=== PATIENT | male | born 1950 | race Caucasian/White ===

== ENCOUNTER 2024-01-03 15:18 | Outpatient (OUT) | payer MEDICARE, SELFPAY ==
--- NOTE | 2024-01-03 15:38 | XR_ITS ---
The [address] [address] Patient Name: NANDO DO MRN: [id number] date: 1950 Sex: M Assigned Patient Location: [facility] Current Patient Location: Accession/Order Number: [id number] Exam Date: 01/03/2024 15:32 Report Date: 01/04/2024 06:29 At the request of: LOLA HILL Procedure: XR cervical spine 2-3V EXAMINATION: XR cervical spine 2-3V HISTORY: Neck Pain M54.2 ; right arm and hand pain COMPARISON: No relevant comparison available. FINDINGS: BONES: Multilevel mild degenerative facet arthropathy. DISC SPACES: C5-C6 moderate narrowing. C6-C7-C7, C7 and T1 mild narrowing. PARASPINOUS: Negative. No paraspinous abnormality is seen. OTHER: Negative. XR/XR cervical spine 2-3V IMPRESSION: 1. Multilevel degenerative disc disease; moderate at C5-C6. Consider MRI for further evaluation if symptoms persist. Electronically authenticated by: AUTUMN PUGA Date: 01/04/2024 06:29
== END 2024-01-03 15:19 | disposition home or self-care (01) ==
LOC: RAD 15:21
PROVIDERS: Family Provider Family Medicine; PCP Family Medicine; Visit Provider Family Medicine
DX: M54.2 Cervicalgia (principal)
CPT/HCPCS: 72040

== ENCOUNTER 2024-02-07 13:20 | Outpatient (OUT) | payer MEDICARE, SELFPAY ==
--- OUTSIDE RECORDS SUMMARY | 2024-02-07 13:48 | XMS_ITS | CCD ---
Author Organization [facility] Inform ion Partnership [facility] Care Team Providers Care Biology Department Chair Name Role Phone Joe Linda Primary Care Provid er JOE INIGUEZ Referring Unavailable JOE INIGUEZ Primary Care Unavailable JOE INIGUEZ Attending Unavailable JOE INIGUEZ Primary Care Unavailable JOE INIGUEZ Attending Unavailable JOE INIGUEZ Referring Unavailable JOE INIGUEZ Primary Care Unavailable JOE INIGUEZ Attending Unavailable JOE INIGUEZ Referring Unavailable JOE INIGUEZ Primary Care Unavailable Lola Hill MD Primary Care Provider [phone] LOLA HILL Attending Unavailable Medications Current Medications Medication Drug Class(es) Dates Sig (Normalized) Sig (Original) [id number] 200 actuat albuterol 0.09 mg/actuat metered dose inhaler (1 source) beta2-Adrenergic Agonist Start: 06-18-2023 End: 07-02-2023 take 2 puff(s) by inhalation every six hours as needed for wheezing albuterol (PROVENTIL HFA;VENTOLIN HFA) 90 mcg/actuation inhaler Indications: Acute cough Inhale 2 puffs every 6 (six) hours as needed for wheezing for up to 14 days. 6.7 g 11 06/18/2023 07/02/2023 Active aspirin 81 mg delayed release oral tablet (2 sources) Platelet Aggregation Inhibitor, Nonsteroidal Anti-inflammatory Drug take 1 tablet by mouth once daily aspirin 81 MG EC tablet Take 81 mg by mouth Daily Active atorvastatin 40 mg oral tablet (2 sources) HMG-CoA Reductase Inhibitor Start: 01-01-2024 take 1 tablet by mouth once daily atorvastatin (Lipitor) 40 MG tablet Indications: Type 2 diabetes mellitus with hyperglycemia, without long-term current use of insulin ([facility]) Take 1 tablet (40 mg) by mouth Daily 30 tablet 3 01/01/2024 Active Start: 01-01-2024 take 1 tablet by suzy th once daily atorvastatin (Lipitor) 40 MG tablet Indications: Type 2 diabetes mellitus with hyperglycemia, without long-term current use of insulin (CMS/HCC) Take 1 tablet (40 mg) by mouth Daily 30 tablet 3 01/01/2024 Active azithromycin 250 mg oral tablet (1 source) Macrolide Antimicrobial Start: 06-18-2023 End: 06-22-2023 azithromycin (ZITHROMAX) 250 mg tablet Indications: Upper respiratory tract infection, unspecified type Take 2 tablets the first day, then 1 tablet daily for 4 days. 6 tablet 0 06/18/2023 06/22/2023 Active cyclobenzaprine hydrochloride 10 mg oral tablet (2 sources) Muscle Relaxant Start: 01-01-2024 take 1 tablet by mouth in the morning, then take 1 tablet by mouth in the evening, then take 1 tablet by mouth at bedtime cyclobenzaprine (Flexeril) 10 MG tablet Indications: Cervical radiculopathy Take 1 tablet (10 mg) by mouth in the morning and 1 tablet (10 mg) in the evening and 1 tablet (10 mg) before bedtime. 60 tablet 1 01/01/2024 Active Start: 01-01-2024 take 1 tablet by suzy th in the morning, then take 1 tablet by mouth in the evening, then take 1 tablet by mouth at bedtime cyclobenzaprine (Flexeril) 10 MG tablet Indications: Cervical radiculopathy Take 1 tablet (10 mg) by mouth in the morning and 1 tablet (10 mg) in the evening and 1 tablet (10 mg) before bedtime. 60 tablet 1 01/01/2024 Active dextromethorphan hydrobromide 1.5 mg/ml / pyrilamine maleate 1.5 mg/ml oral solution (1 source) Uncompetitive X-bjiqff-U-aspartate Receptor Antagonist, Sigma-1 Agonist Start: 06-18-2023 take 10 mL by mouth every eight hours for cough and cough pyrilamine-dextromethorphan 7.5-7.5 mg/5 mL liquid Indications: Acute cough Take 10 mL by mouth every 8 (eight) hours. 120 mL 0 06/18/2023 Active 24 hr metFORMIN hydrochloride 500 mg extended release oral tablet (2 sources) Biguanide Start: 08-20-2023 End: 01-01-2024 take 1 tablet by mouth every twenty-f our hours at mealtime metFORMIN XR (Glucophage-XR) 500 MG 24 hr tablet Take 500 mg by mouth in the morning. Take with meals. 08/20/2023 01/01/2024 Discontinued predniSONE 50 mg oral tablet (3 sources) Start: 01-01-2024 End: 01-07-2024 take 1 tablet by mouth once daily predniSONE (Deltasone) 50 MG tablet Indications: Cervical radiculopathy Take 1 tablet (50 mg) by mouth Daily for 6 days 6 tablet 01/01/2024 01/07/2024 Active Start: 06-18-2023 End: 06-23-2023 take 1 tablet by mouth in the morning, then take 1 tablet by mouth at bedtime predniSONE (DELTASONE) 10 mg tablet Indications: Upper respiratory tract infection, unspecified type Take 1 tablet (10 mg total) by mouth in the morning and 1 tablet (10 mg total) before bedtime. Do all this for 5 days. 10 tablet 0 06/18/2023 06/23/2023 Active traMADol hydrochloride 50 mg oral tablet (2 sources) Opioid Agonist Start: 01-01-2024 End: 01-08-2024 take 1 tablet by mouth four times daily as needed for pain traMADol (Ultram) 50 MG tablet Indications: Cervical radiculopathy Take 1 tablet (50 mg) by mouth 4 (four) times a day as needed for severe pain for up to 7 days 28 tablet 01/01/2024 01/08/2024 Active Problems Active Problems Problem Classification Problem Date Documented Da te Episodic/Chronic Congestive heart failure; nonhypertensive (4 sources) Chronic systolic heart failure; Translations: [Chronic systolic (congestive) heart failure] Onset: 01-01-2024 01-01-2024 Chronic Coronary atherosclerosis and other heart disease (4 sources) Coronary arteriosclerosis; Translations: [Atherosclerotic heart disease of inupiat coronary artery without angina pectoris] Onset: 01-01-2024 01-01-2024 Chronic Diabetes mellitus with complications (5 sources) Type 2 diabetes mellitus with hyperglycemia; Translations: [Hyperglycemia due to type 2 diabetes mellitus] Onset: 08-20-2023 01-01-2024 Chronic Diabetes mellitus without complication (1 source) Diabetes mellitus Onset: 08-20-2023 Chronic Disorders of lipid metabolism (4 sources) Mixed hyperlipidemia; Translations: [Dyslipidemia] Onset: 07-23-2023 01-01-2024 Chronic Immunizations and screening for infectious disease (2 sources) Encounter for screening for other viral diseases; Translations: [Encounter for screening for other viral diseases] Onset: 07-23-2023 Episodic Mood disorders (4 sources) Depression; Translations: [Major depressive disorder, single episode, mild] Onset: 07-23-2023 01-01-2024 Chronic Other aftercare (2 sources) Long-term current use of drug therapy; Translations: [Other fpc (current) drug therapy] Onset: 01-01-2024 01-01-2024 Episodic Other circulatory disease (4 sources) Elevated blood-pressure reading without diagnosis of hypertension; Translations: [Elevated blood-pressure reading, without diagnosis of hypertension] Onset: 01-01-2024 01-01-2024 Episodic Other lower respiratory disease (1 source) Cough; Translations: [Acute cough] 06-18-2023 Episodic Other nutritional; endocrine; and metabolic disorders (2 sources) Morbid obesity; Translations: [Morbid (severe) obesity due to excess calories] Onset: 06-18-2023 06-18-2023 Chronic Other nutritional; endocrine; and metabolic disorders (1 source) Morbid (severe) obesity due to excess calories; Translations: [Morbid (severe) obesity due to excess calories] Onset: 06-18-2023 Chronic Other nutritional; endocrine; and metabolic disorders (2 sources) Body mass index 30+ - obesity; Translations: [Obesity, unspecified] Onset: 01-01-2024 01-01-2024 Chronic Other upper respiratory disease (1 source) Allergic rhinitis due to pollen; Translations: [Allergic rhinitis due to pollen] Onset: 07-23-2023 Chronic Other upper respiratory infections (2 sources) Upper respiratory infection; Translations: [Acute upper respiratory infection, unspecified] Onset: 06-18-2023 06-18-2023 Episodic Screening and history of mental health and substance abuse codes (1 source) Encounter for screening for depression; Translations: [Encounter for screening for depression] Onset: 07-23-2023 Episodic Spondylosis; intervertebral disc disorders; other back problems (8 sources) Cervical radiculopathy; Translations: [Radiculopathy, cervical region] Onset: 01-01-2024 01-01-2024 Episodic Unclassified (1 source) Annual Exam Onset: 07-23-2023 Unclassified (1 source) Acute cough; Translations: [Acute cough] Onset: 06-18-2023 Unclassified (1 source) new patient Onset: 06-18-2023 Past or Other Problems Problem Classification Problem Date Documented Da te Episodic/Chronic Mood disorders (1 source) Mood disorders Onset: 06-18-2023 06-18-2023 Unclassified (1 source) Onset: 06-18-2023 06-18-2023 Results Test Name Value Interpretation Reference Range Facil ity CBC AND AUTO DIFFon 07-23-19 24 ABSOLUTE BASOPHIL 0.1 X10E9/L Normal 0.0-0.2 [facility] Comment on above: Performed By: #### C BCA CMP, 36576-0, 06999-0 #### [facility] ([id number]) [address], [address] [place] [address] Basophils/100 WBC (Bld) 1.0 % Normal [facility] Comment on above: Performed By: #### C BCA, CMP, 81954-4, 73204-6 #### [facility] ([id number]) [address], [address] [place] [address] Eosinophils (Bld) [#/Vol] 0.1 10*3/uL Normal 0.0-0.4 [facility] Comment on above: Performed By: #### C BCA, CMP, 73422-0, 78629-3 #### [facility] ([id number]) [address], [address] [place] [address] Eosinophils/100 WBC (Bld) 2.0 % Normal [facility] Comment on above: Performed By: #### C BCA, CMP, 76516-1, 19992-3 #### [facility] ([id number]) [address], [address] [place] [address] Erythrocyte distribution width (RBC) [Ratio] 13.5 % Normal 11.5-15.0 [facility] Comment on above: Performed By: #### C BCA, CMP, 14985-9, 36300-3 #### [facility] ([id number]) [address], [address] [place] [address] Hematocrit (Bld) [Volume fraction] 42.2 % Normal 39-49 [facility] Comment on above: Performed By: #### C BCA, CMP, 22829-9, 29193-5 #### [facility] ([id number]) [address], [address] [place] [address] Hemoglobin (Bld) [Mass/Vol] 14.1 g/dL Normal 13.0-17.0 [facility] Comment on above: Performed By: #### C BCA, CMP, 71549-0, 79570-1 #### [facility] ([id number]) [address], [address] [place] [address] Lymphocytes (Bld) [#/Vol] 2.3 10*3/uL Normal 1.0-3.5 [facility] Comment on above: Performed By: #### C BCA, CMP, 40840-7, 47722-2 #### [facility] ([id number]) [address], [address] [place] [address] Lymphocytes/100 WBC (Bld) 39.0 % Normal [facility] Comment on above: Performed By: #### C BCA, CMP, 70712-3, 27683-2 #### [facility] ([id number]) [address], [address] [place] [address] MCH (RBC) [Entitic mass] 31.2 pg Normal 27-34 [facility] Comment on above: Performed By: #### C BCA, CMP, 54500-7, 20022-5 #### [facility] ([id number]) [address], [address] [place] [address] MCHC (RBC) [Mass/Vol] 33.5 g/dL Normal 32-36 [facility] Comment on above: Performed By: #### C BCA, CMP, 89351-1, 43713-7 #### [facility] ([id number]) [address], [address] [place] [address] MCV (RBC) [Entitic vol] 93 fL Normal 80-100 [facility] Comment on above: Performed By: #### C BCA, CMP, 25901-5, 43688-9 #### [facility] ([id number]) [address], [facility] [address] [place] [address] Monocytes (Bld) [#/Vol] 0.3 10*3/uL Normal 0-0.9 [facility] Comment on above: Performed By: #### Tae BCA, CMP, 67953-5, 91809-6 #### [facility] ([id number]) [address], [address] [address] [place] [address] Monocytes/100 WBC (Bld) 5.0 % Normal [facility] Comment on above: Performed By: #### C BCA, CMP, 60530-0, 24494-4 #### [facility] ([id number]) [address] [address] [place] [address] Neutrophils (Bld) [#/Vol] 3.1 10*3/uL Normal 1.5-6.6 [facility] Comment on above: Performed By: #### C BCA, CMP, 25894-4, 42434-6 #### [facility] ([id number]) [address], [address] [place] [address] Platelet mean volume (Bld) [Entitic vol] 10.3 fL Normal 7-12 [facility] Comment on above: Performed By: #### C BCA, CMP, 45205-3, 63759-1 #### [facility] ([id number]) [address], [address] [place] [address] Platelets (Bld) [#/Vol] 184 10*3/uL Normal 150-450 [facility] Comment on above: Performed By: #### C BCA, CMP, 58523-4, 51136-0 #### [facility] ([id number]) [address], [address] [place] [address] RBC COUNT 4.53 X10E12/L Normal 4.10-5.70 [facility] Comment on above: Performed By: #### C BCA, CMP, 20876-6, 51168-2 #### [facility] ([id number]) [address], [address] [place] [address] SEG NEUTROPHIL 53.0 % Normal [facility] Comment on above: Performed By: #### C BCA, CMP, 74828-8, 03997-5 #### [facility] ([id number]) [address], [address] [place] [address] WBC (Bld) [#/Vol] 5.9 10*3/uL Normal 4.0-11.0 [facility] Comment on above: Performed By: #### C BCA, CMP, 57230-1, 50240-6 #### [facility] ([id number]) [address], [address] [place] [address] COMPREHENSIVE METABOLIC PANE Raman 07-23-2023 Albumin [Mass/Vol] 4.1 g/dL Normal 3.2-5.3 [facility] Comment on above: Performed By: #### C BCA, CMP, 63946-7, 26728-0 #### [facility] ([id number]) [address], [address] [place] [address] ALP [Catalytic activity/Vol] 64 U/L Normal 39-130 [facility] Comment on above: Performed By: #### C BCA, CMP, 60850-7, 73475-1 #### [facility] ([id number]) [address], [address] [place] [address] ALT [Catalytic activity/Vol] 15 U/L Normal 0-40 [facility] Comment on above: Performed By: #### C BCA, CMP, 66491-1, 86568-1 #### [facility] ([id number]) [address], [address] [place] [address] Anion gap [Moles/Vol] 9 mmol/L Normal 5-15 [facility] Comment on above: Performed By: #### C BCA, CMP, 67984-2, 38949-9 #### [facility] ([id number]) [address], [address] [place] [address] AST [Catalytic activity/Vol] 12 U/L Normal 0-41 [facility] Comment on above: Performed By: #### C BCA, CMP, 36219-1, 18721-4 #### [facility] ([id number]) [address], [address] [place] [address] Bilirubin [Mass/Vol] 0.6 mg/dL Normal 0.3-1.2 [facility] Comment on above: Performed By: #### C BCA, CMP, 72023-0, 94255-9 #### [facility] ([id number]) [address], [address] [place] [address] Calcium [Mass/Vol] 9.1 mg/dL Normal 8.5-10.5 [facility] Comment on above: Performed By: #### C BCA, CMP, 46768-2, 25720-0 #### [facility] ([id number]) [address], [address] [place] [address] Chloride [Moles/Vol] 107 mmol/L Normal 98-109 [facility] Comment on above: Performed By: #### C BCA, CMP, 80258-9, 70519-9 #### [facility] ([id number]) [address], [address] [place] [address] CO2 [Moles/Vol] 25 mmol/L Normal 22-32 [facility] Comment on above: Performed By: #### C BCA, CMP, 41144-4, 96519-9 #### [facility] ([id number]) [address], [address] [place] [address] Creatinine [Mass/Vol] 0.89 mg/dL Normal 0.60-1.30 [facility] Comment on above: Result Comment: METH OD TRACEABLE TO IDMS STANDARD Performed By: #### C BCA, CMP, 51580-8, 68840-7 #### [facility] ([id number]) [address], [address] [address] GFR/1.73 sq M.predicted among non-blacks MDRD (S/P/Bld) [Vol rate/Area] 90 mL/min/{1.73_m2} Normal >59 [facility] Comment on above: Result Comment: Reported eGFR is based on the CKD-EPI 2020 equation that does not use a race coefficient. Performed By: #### C BCA, CMP, 30355-0, 89039-1 #### [facility] ([id number]) [address], [address] [place] [address] Glucose [Mass/Vol] 127 mg/dL High 65-99 [facility] Comment on above: Performed By: #### C BCA, CMP, 18994-1, 97799-5 #### [facility] ([id number]) [address], [address] [place] [address] Potassium [Moles/Vol] 4.0 mmol/L Normal 3.5-5.0 [facility] Comment on above: Performed By: #### C BCA, CMP, 84041-6, 79307-8 #### [facility] ([id number]) [address], [address] [place] [address] Protein [Mass/Vol] 6.7 g/dL Normal 6.0-8.0 [facility] Comment on above: Performed By: #### C BCA, CMP, 84152-7, 97802-3 #### [facility] ([id number]) [address], [address] [place] [address] Sodium [Moles/Vol] 141 mmol/L Normal 134-146 [facility] Comment on above: Performed By: #### C BCA, CMP, 68566-0, 74747-5 #### [facility] ([id number]) [address], [address] [place] [address] Urea nitrogen [Mass/Vol] 12 mg/dL Normal 5-27 [facility] Comment on above: Performed By: #### C BCA, CMP, 48766-8, 61481-9 #### [facility] ([id number]) [address] [address] [place] [address] HCV Ab IA Qlon 07-23-2023 ANTI HCV W/PCR REFLX Non-Reactive Normal NRCT [facility] Comment on above: Result Comment: If recent infection suspected, recommend repeat testing (>2 months). Qtfffg-et-zqbpef ratio is <0.80. Performed By: #### C BCA, CMP, 73054-3, 45658-5 #### [facility] ([id number]) [address], [address] [place] [address] HGB A1C (GLYCO-HGB)on 2023 Glucose [Mass/Vol] 146 mg/dL Normal [facility] Comment on above: Performed By: #### C BCA, CMP, 26917-7, 37296-7 #### [facility] ([id number]) [address], [address] [place] [address] HbA1c (Bld) [Mass fraction] 6.7 % High 4.4-5.6 [facility] Comment on above: Result Comment: NOTE ADA Guidelines Result HgbA1c Normal : less than 5.7 % Prediabetes : 5.7 % to 6.4 % Diabetes : > 6.4 % Use with caution in patients with abnormal hemoglobin variants as the half-life of red blood cells and in vivo glycation rates are affected. Performed By: #### C BCA, CMP, 71296-2, 20661-2 #### [facility] ([id number]) [address] [place] [address] Lipid 1996 panelon 4 Cholesterol [Mass/Vol] 219 mg/dL High 150-200 [facility] Comment on above: Performed By: #### C BCA, CMP, 10702-1, 25109-2 #### [facility] ([id number]) [address], [address] [place] [address] Cholesterol in HDL [Mass/Vol] 37 mg/dL Low >39 [facility] Comment on above: Result Comment: HDL <40 mg/dL - High Risk HDL > or = 40mg/dL- Desirable HDL >60 mg/dL - Negative Risk Performed By: #### C BCA, CMP, 59053-4, 38710-3 #### [facility] ([id number]) [address] [place] [address] Cholesterol in LDL [Mass/Vol] 127 mg/dL Normal <130 [facility] Comment on above: Result Comment: LDL <100 mg/dL - Desirable LDL >160 mg/dL - High Risk Performed By: #### C BCA, CMP, 96385-1, 17422-4 #### [facility] ([id number]) [address], [address] [place] [address] Cholesterol in VLDL [Mass/Vol] 55 mg/dL High 0-30 [facility] Comment on above: Performed By: #### C BCA, CMP, 16419-2, 95334-3 #### [facility] ([id number]) [address], [address] [place] [address] CHOLESTEROL:HDL 5.9 High 1.0-5.0 [facility] Comment on above: Performed By: #### C BCA, CMP, 71400-5, 15305-1 #### [facility] ([id number]) [address], [address] [place] [address] Triglyceride [Mass/Vol] 275 mg/dL High 27-150 [facility] Comment on above: Performed By: #### C BCA, CMP, 38025-9, 44817-8 #### [facility] ([id number]) [address], [address] [place] [address] Vital Signs Date Time Vital Sign Value Performing Clinician Facility 01-01-2024 10:55-0400 Body height 172.7 cm Lola Hill MD Work Phone: [facility] 01-01-2024 10:55-0400 Body mass index (BMI) [Ratio] 39.68 kg/m2 Lola Hill MD Work Phone: [facility] 01-01-2024 10:55-0400 Body temperature 95.11 [degF] Lola Hill MD Work Phone: [facility] 01-01-2024 10:55-0400 Body weight 118.39 kg Lola Hill MD Work Phone: [facility] 01-01-2024 10:55-0400 Diastolic blood pressure 100 mm[Hg] Lola Hill MD Work Phone: [facility] 01-01-2024 10:55-0400 Heart rate 81 /min Lola Hill MD Work Phone: [facility] 01-01-2024 10:55-0400 Respiratory rate 18 /min Lola Hill MD Work Phone: [facility] 01-01-2024 10:55-0400 SaO2% (BldA) [Mass fraction] 96 % Lola Hill MD Work Phone: [facility] 01-01-2024 10:55-0400 Systolic blood pressure 176 mm[Hg] Lola Hill MD Work Phone: [facility] 06-18-2023 13:54-0400 Body height 172.7 cm Joe Iniguez [employer] Work Phone: [facility] 06-18-2023 13:54-0400 Body mass index (BMI) [Ratio] 40.35 kg/m2 Joe Iniguez [employer] Work Phone: [facility] 06-18-2023 13:54-0400 Body temperature 97.39 [degF] Joe Iniguez [employer] Work Phone: [facility] 06-18-2023 13:54-0400 Body weight 120.39 kg Joe Iniguez [employer] Work Phone: [facility] 06-18-2023 13:54-0400 Diastolic blood pressure 88 mm[Hg] Joe Iniguez [employer]ICER Work Phone: [facility] 06-18-2023 13:54-0400 Heart rate 96 /min Joe Iniguez [employer] OFFICER Work Phone: [facility] 06-18-2023 13:54-0400 Respiratory rate 20 /min Joe Iniguez [employer] OFFICER Work Phone: [facility] 06-18-2023 13:54-0400 SaO2% (BldA) [Mass fraction] 92 % Joe Iniguez [employer] OFFICER Work Phone: [facility] 06-18-2023 13:54-0400 Systolic blood pressure 138 mm[Hg] Joe Iniguez [employer] Work Phone: [facility] Encounters Encounter Date Encounter Type Care Provider Facility Start: 01-01-2024 End: 01-01-2024 Bambo flowsjackie Hill MD Work Phone: [facility] Start: 01-01-2024 End: 01-01-2024 Bamanitra flowsjackie Hill MD Work Phone: [facility] Start: 01-01-2024 End: 01-01-2024 Office outpatient new 45 minutes Lola Hill MD Work Phone: [facility] Comment on above: Cervical radiculopat hy (Primary Dx); Neck pain; Type 2 diabetes mellitus with hyperglycemia, without long-term current use of insulin ([facility]); Chronic HFrEF (heart failure with reduced ejection fraction) ([facility]); Coronary artery disease involving inupiat coronary artery of inupiat heart without angina pectoris ([facility]); Elevated blood pressure reading without diagnosis of hypertension Start: 01-01-2024 End: 01-01-2024 ambulatory LOLA HILL Not Available Start: 08-20-2023 End: 08-20-2023 ambulatory [facility] Start: 07-23-2023 End: 07-24-2023 ambulatory [facility] Start: 07-23-2023 End: 07-23-2023 ambulatory [facility] Start: 07-23-2023 Encounter for genera l adult medical examination without abnormal findings [facility] Start: 06-18-2023 End: 06-18-2023 ambulatory [facility] Start: 06-18-2023 End: 06-18-2023 Office outpatient new 30 minutes Joe J Vincent [employer] Work Phone: [facility] Comment on above: Upper respiratory tr act infection, unspecified type (Primary Dx); Obesity, morbid ([facility]); Acute cough Procedures Date Procedure Procedure Detail Performing Clinician Start: 06-18-2023 Adult depression screening assessment Joe PEREZTRAFFIC MAINTENANCE OFFICER Work Phone: Plan of Treatment Date Care Activity Detail Author Start: 12-31-2024 Screening for malign ant neoplasm of colon Colorectal Cancer Screening [facility] Comment on above: Postponed from 03/27 (Patient Refused) Start: 07-22-2024 Medicare Annual Well ness (AWV) Medicare Annual Wellness (AWV) [facility] Start: 06-17-2024 Adult BMI Screening Adult BMI Screen ing [facility] Start: 06-17-2024 Depression Screening Depression Scre ening [facility] Start: 06-17-2024 Fall Risk Screening Fall Risk Screen ing [facility] Start: 06-17-2024 Tobacco Screening Tobacco Screening [facility] Start: 02-07-2024 End: 02-07-2024 Patient encounter procedure 02/07/2024 10:15 AM EST Office Visit [facility] [address] [place] [address] Lola Hill MD [address] [place] [address] [facility] Start: 01-01-2024 End: 12-31-2024 Albumin, urine, random Albumin, urine, random Lab Routine Type 2 diabetes mellitus with hyperglycemia, without long-term current use of insulin ([facility] Expected: 01/01/2024 (Approximate), Expires: 12/31/2024 [facility] Comment on above: Expected: 01/01/2024 (Approximate), Expires: 12/31/2024 Start: 01-01-2024 End: 12-31-2024 Hemoglobin A1c/Hemoglobin.total in Blood Hemoglobin A1c Lab Routine Type 2 diabetes mellitus with hyperglycemia, without long-term current use of insulin ([facility] Expected: 01/01/2024 (Approximate), Expires: 12/31/2024 [facility] Comment on above: Expected: 01/01/2024 (Approximate), Expires: 12/31/2024 Start: 01-01-2024 End: 12-31-2024 XR Cervical spine 2 or 3 Views XR cervical spine 2 or 3 views Imaging Routine Neck pain Expected: 01/01/2024, Expires: 12/31/2024 [facility] Work Phone: Comment on above: Expected: 01/01/2024 , Expires: 12/31/2024 Start: 01-01-2024 End: 01-01-2024 Patient encounter procedure 01/01/2024 10:45 AM EDT Office Visit [facility] [address] [place] [address] Lola Hill MD [address] [place] [address] Arrived [facility] Comment on above: Arrived Start: 12-02-2023 Influenza vaccination Influenz a Vaccine (#1) [facility] Start: 07-23-2023 End: 07-23-2023 Patient encounter procedure 07/23/2023 10:20 AM EDT Office Visit [facility] - Family Medicine [address] [place] [address] Joe Iniugez, [employer]-TRAFFIC MAINTENANCE OFFICER [address] [place] [address] [facility] Start: 1999 Administration of varicella zoster vaccine Zoster (Shingles) Vaccine (1 of 2) [facility] Start: 1968 DTaP,Tdap and Td Vac cines (1 - Tdap) DTaP,Tdap and Td Vaccines (1 - Tdap) [facility] Start: 1967 Adult BMI Follow Up Plan Adult BMI Follow Up Plan [facility] Start: 1949 Medicare Annual Well ness (AWV) Medicare Annual Wellness (AWV) [facility] Start: 1949 Medicare Annual Well ness Visit Medicare Annual Wellness Visit [facility] Start: 1949 Screening for malign ant neoplasm of colon [facility] Immunizations Immunization Date Immunization Notes Care Provider Fa cility 01-15-2023 influenza virus vacc ine, unspecified formulation Lola Hill MD Work Phone: [facility] Payers Date Payer Category Payer Medicare [id number] 2023 Medicare [id number] 1950 Unknown [id number] 1949 Unknown [id number] 1949 Unknown [id number] 1949 Unknown [id number] 1949 Unknown [id number] Social History Date Type Detail Facility Start: 06-18-2023 End: 01-01-2024 Tobacco smoking status NHIS Ex-smoker [facility] History of tobacco use Current smoker [facility] History of tobacco use Cigarette Smoker P [facility] Start: 06-18-2023 End: 01-01-2024 Tobacco use and exposure Smokeless tobacco non-user [facility] Start: 06-18-2023 Alcohol intake Lifetime non-d matias (finding) [facility] Start: 06-18-2023 End: 01-01-2024 History of Social function [facility] [employer] [facility] Start: 06-18-2023 End: 01-01-2024 Tobacco use panel [facility] Adolescent depressio n screening assessment 0 [facility] Start: 1950 Sex Assigned At Not on file P [facility] Tobacco smoking stat NHIS Tobacco smoking consumption unknown [facility] History of Present illness Narrative 01-01-2024 Lola Hill MD - 01/01/2024 11:40 AM Bernard Hill MD - 01/01/2024 11:40 AM Bernard Hill MD - 01/01/2024 11:40 AM Bernard Hill MD - 01/01/2024 11:40 AM EDT Note Date & Type Note Facility 01-01-2024 History of Presen t illness Narrative Associated Problem(s): Type 2 diabetes mellitus with hyperglycemia, without long-term current use of insulin ([facility] Not checking BS and due for A1C. Start statin. Associated Problem(s): Elevated blood pressure reading without diagnosis of hypertension BP elevated but severe pain. Monitor PRN. Associated Problem(s): Coronary artery disease involving inupiat coronary artery of inupiat heart without angina pectoris ([facility]) No pain and continue aspirin. Resume statin. Associated Problem(s): Chronic HFrEF (heart failure with reduced ejection fraction) ([facility]) No edema and monitor. Not to cardiology in years and will need repeat echo next visit. Associated Problem(s): Neck pain Severe pain and symptoms suggestive cervical nerve compression. Check x-ray and start PT. Start prednisone for inflammation. Use flexeril for spasms and ultram for pain. If no improvement will need MRI. Associated Problem(s): Cervical radiculopathy Severe pain and symptoms suggestive cervical nerve compression. Check x-ray and start PT. Start prednisone for inflammation. Use flexeril for spasms and ultram for pain. If no improvement will need MRI. Images from the original note were not included. Subjective Patient ID: Александр Harris is a 73 y.o. male who presents for Back Pain (Feels like its a pinched nerve. ). Over 5 years since last visit and currently not on any medication other than daily aspirin. C/o severe pain in top right shoulder and right arm. 12/28 woke up with severe pain in top shoulder and right upper arm. Over next few days pain radiates down right arm into hand. C/o numbness and tingling in pinky and ring finger. Severe pain in upper arm to raise arm and severe weakness in arm. No pain in shoulder. Mild stiffness in neck. Never had in past. Using OTC and not helping. Diagnosed with diabetes in July and tried metformin but side effects. Due for labs. Not checking BS away from office. Changed diet and trying to limit carbs. Denies signs of elevated BS such as polyuria, polyphagia or polydipsia. Prior CABG and pacemaker around 2012 and not on medication or seen by cardiology for years. Taking aspirin daily. Denies edema. No chest pain or palpitations. Review of Systems Constitutional: Negative for fatigue. Respiratory: Negative for cough, shortness of breath and wheezing. Cardiovascular: Negative for chest pain and palpitations. Gastrointestinal: Negative for abdominal pain, diarrhea, nausea and vomiting. Genitourinary: Negative for dysuria. Objective Physical Exam Constitutional: General: He is not in acute distress. Appearance: Normal appearance. HENT: Head: Normocephalic. Right Ear: Tympanic membrane and ear canal normal. Left Ear: Tympanic membrane and ear canal normal. Eyes: Extraocular Movements: Extraocular movements intact. Pupils: Pupils are equal, round, and reactive to light. Cardiovascular: Rate and Rhythm: Normal rate and regular rhythm. Heart sounds: No murmur heard. No friction rub. No gallop. Pulmonary: Breath sounds: Normal breath sounds. No wheezing, rhonchi or rales. Abdominal: General: Bowel sounds are normal. There is no distension. Palpations: Abdomen is soft. Tenderness: There is no abdominal tenderness. There is no guarding or rebound. Musculoskeletal: Left lower leg: No edema. Comments: Severe pain to move right arm and tightness in paraspinal muscles Neurological: Mental Status: He is alert. Assessment/Plan Problem List Items Addressed This Visit Type 2 diabetes mellitus with hyperglycemia, without long-term current use of insulin ([facility] Not checking BS and due for A1C. Start statin. Relevant Medications atorvastatin (Lipitor) 40 MG tablet Other Relevant Orders Albumin, urine, random Hemoglobin A1c Chronic HFrEF (heart failure with reduced ejection fraction) ([facility] No edema and monitor. Not to cardiology in years and will need repeat echo next visit. Coronary artery disease involving inupiat coronary artery of inupiat heart without angina pectoris ([facility] No pain and continue aspirin. Resume statin. Cervical radiculopathy - Primary Severe pain and symptoms suggestive cervical nerve compression. Check x-ray and start PT. Start prednisone for inflammation. Use flexeril for spasms and ultram for pain. If no improvement will need MRI. Relevant Medications predniSONE (Deltasone) 50 MG tablet cyclobenzaprine (Flexeril) 10 MG tablet traMADol (Ultram) 50 MG tablet Neck pain Severe pain and symptoms suggestive cervical nerve compression. Check x-ray and start PT. Start prednisone for inflammation. Use flexeril for spasms and ultram for pain. If no improvement will need MRI. Relevant Orders XR cervical spine 2 or 3 views Elevated blood pressure reading without diagnosis of hypertension BP elevated but severe pain. Monitor PRN. documented in this encounter [facility] History of Present illness Narrative 06-18-2023 Joe Iniguez APRN-TRAFFIC MAINTENANCE OFFICER - 06/18/2023 2:10 PM EDT Note Date & Type Note Facility 06-18-2023 History of Present illness Narrative Images from the original note were not included. [address] [facility] [address] SUBJECTIVE: Patient ID: Александр Harris is a 73 y.o. male. Chief Complaint Patient presents with new patient Presents for new patient establishment. Previous patient of Dr. Hill. Has not been seen by PCP in unknown amount of years. He denies any recent preventative care. Chief concern is ongoing cough and congestion. Sinus pressure and drainage for right eye. Onset of symptoms started with allergies last month. Two weeks ago, symptoms worsened. States he recently went to urgent care and prescribed cough syrup which has not helped. URI This is a new problem. The current episode started 1 to 4 weeks ago. The problem has been waxing and waning. There has been no fever. Associated symptoms include congestion, coughing, a plugged ear sensation, rhinorrhea and a sore throat. Pertinent negatives include no chest pain, dysuria or headaches. He has tried decongestant for the symptoms. The treatment provided no relief. The following portions of the patient's history were reviewed and updated as appropriate: allergies, current medications, past family history, past medical history, past social history, past surgical history and problem list. Past Surgical History: Procedure Laterality Date A-V CARDIAC PACEMAKER INSERTION CARDIAC SURGERY EYE SURGERY Past Medical History: Diagnosis Date Arthritis Cataract There is no immunization history on file for this patient. REVIEW OF SYSTEMS: Review of Systems Constitutional: Negative for chills, fatigue and fever. HENT: Positive for congestion, rhinorrhea and sore throat. Negative for hearing loss and trouble swallowing. Eyes: Negative for pain and visual disturbance. Respiratory: Positive for cough. Negative for chest tightness and shortness of breath. Cardiovascular: Negative for chest pain, palpitations and leg swelling. Gastrointestinal: Negative for blood in stool. Endocrine: Negative for polydipsia, polyphagia and polyuria. Genitourinary: Negative for difficulty urinating, dysuria, flank pain, hematuria, scrotal swelling and testicular pain. Musculoskeletal: Negative. Skin: Negative. Allergic/Immunologic: Negative. Negative for environmental allergies. Neurological: Negative for seizures, syncope and headaches. Hematological: Does not bruise/bleed easily. Psychiatric/Behavioral: Negative. PHYSICAL EXAMINATION: Vitals: 06/18/23 1354 BP: 138/88 BP Site: Left Arm BP Postition: Sitting Pulse: 96 Resp: 20 Temp: 36.3 C (97.4 F) TempSrc: Oral SpO2: 92% Weight: 120.4 kg (265 lb 6.4 oz) Height: 172.7 cm (5' 8 ) Patient noted to have elevated BMI and the following intervention(s) were applied: encouragement to exercise. Physical Exam Vitals and nursing note reviewed. Constitutional: General: He is not in acute distress. Appearance: He is well-developed. HENT: Head: Normocephalic and atraumatic. Right Ear: Tympanic membrane and external ear normal. Left Ear: Tympanic membrane and external ear normal. Nose: Nose normal. Mouth/Throat: Mouth: Mucous membranes are moist. Pharynx: No oropharyngeal exudate. Eyes: General: No scleral icterus. Right eye: No discharge. Left eye: No discharge. Conjunctiva/sclera: Conjunctivae normal. Pupils: Pupils are equal, round, and reactive to light. Neck: Vascular: No JVD. Cardiovascular: Rate and Rhythm: Normal rate and regular rhythm. Heart sounds: Normal heart sounds. No murmur heard. No friction rub. No gallop. Pulmonary: Effort: Pulmonary effort is normal. No respiratory distress. Breath sounds: Normal breath sounds. Chest: Chest wall: No tenderness. Abdominal: General: Bowel sounds are normal. There is no distension. Palpations: Abdomen is soft. There is no mass. Tenderness: There is no abdominal tenderness. There is no guarding or rebound. Hernia: No hernia is present. Musculoskeletal: General: No tenderness. Normal range of motion. Cervical back: Normal range of motion and neck supple. Lymphadenopathy: Cervical: No cervical adenopathy. Skin: General: Skin is warm and dry. Capillary Refill: Capillary refill takes less than 2 seconds. Findings: No rash. Neurological: Mental Status: He is alert and oriented to person, place, and time. Deep Tendon Reflexes: Reflexes are normal and symmetric. Psychiatric: Mood and Affect: Mood normal. Behavior: Behavior normal. Thought Content: Thought content normal. Judgment: Judgment normal. ASSESSMENT/PLAN: Александр was seen today for new patient. Diagnoses and all orders for this visit: Obesity, morbid (CMS-HCC) Upper respiratory tract infection, unspecified type - azithromycin (ZITHROMAX) 250 mg tablet; Take 2 tablets the first day, then 1 tablet daily for 4 days. - predniSONE (DELTASONE) 10 mg tablet; Take 1 tablet (10 mg total) by mouth in the morning and 1 tablet (10 mg total) before bedtime. Do all this for 5 days. Acute cough - albuterol (PROVENTIL HFA;VENTOLIN HFA) 90 mcg/actuation inhaler; Inhale 2 puffs every 6 (six) hours as needed for wheezing for up to 14 days. - pyrilamine-dextromethorphan 7.5-7.5 mg/5 mL liquid; Take 10 mL by mouth every 8 (eight) hours. Cool mist humidification for congestion, warm salt water gargles as needed for sore throat. Motrin or Tylenol as needed per guest advisor guidelines for fever or pain. Start Zpak Prednisone 10 mg oral twice daily for 5 days ProAir MDI as directed PRN for shortness of breath / wheezing [place] PRN as directed for cough Cool mist humidification for congestion, warm salt water gargles as needed for sore throat. Motrin or Tylenol as needed per guest advisor guidelines for fever or pain. Body mass index is 40.35 kg/m . Patient noted to have elevated BMI and the following intervention(s) were applied: Discussed current weight today. Consider healthy food choices, portion control. Avoid sugary beverages and high concentrated sweets. Routine exercise regimen encouraged. ALL QUESTIONS ANSWERED Total time spent was 35 minutes: Preparing to see the patient (e.g., review of tests) Obtaining and/or reviewing separately obtained history Performing a medically appropriate examination and/or evaluation Counseling and educating the patient/family/caregiver Ordering medications, tests, or procedures Follow-up: Medicare wellness TIBURCIO Parnell 06/18/23 1436 documented in this encounter [facility] Evaluation note Note Date & Type Note Facility Evaluation note Diagnosis Upper respiratory tract infection, unspecified type- Primary Obesity, morbid ([facility] [place] [place]) Morbid obesity Acute cough documented in this encounter [facility] Evaluation note Note Date & Type Note Facility Evaluation note Diagnosis Cervical radiculopathy- Primary Brachial neuritis or radiculitis nos Neck pain Cervicalgia Type 2 diabetes mellitus with hyperglycemia, without long-term current use of insulin ([facility]) Chronic HFrEF (heart failure with reduced ejection fraction) ([facility]) Coronary artery disease involving inupiat coronary artery of inupiat heart without angina pectoris (CMS/HCC) Elevated blood pressure reading without diagnosis of hypertension documented in this encounter [facility] Instructions Attachments Note Date & Type Note Facility Instructions The following attachments cannot be sent through Care Everywhere.Cough Discharge Instructions, Adult (American)documented in this encounter [facility] Summary Purpose Family History No Family History Records FoundNo Family History Records FoundNo Family History Records Found Advance Directives No Advanced Directives Records FoundNo Advanced Directives Records FoundNo Advanced Directives Records Found Additional Source Comments Reason for Visit (unrecogniz ed section and content) Reason Comments new patient Reason Comments Back Pain Feels like its a pin ched nerve. Care Teams (unrecognized sec tion and content) Biology Department Chair Relationship Specialty Start Date End Date Joe Iniguez, [employer]-TRAFFIC MAINTENANCE OFFICER [address] [place] [address] PCP - General Family Medicine 06/18/23 Biology Department Chair Relationship Specialty Start Date End Date Lola Hill MD [address] [place] [phone] PCP - General Family Medicine 12/31/23 Biology Department Chair Relationship Specialty Start Date End Date Lola Hill MD [address] [place] [phone] PCP - General Family Medicine 12/31/23 (unrecognized sect ion and content) No Status Records FoundNo Status Records FoundNo Status Records Found INFORMATION SOURCE (unrecogn ized section and content) DATE CREATED AUTHOR 07/24/2023 [facility] DATE CREATED AUTHOR AUTHOR'S ORGANIZ ATION 08/22/2023 [facility] DATE CREATED AUTHOR AUTHOR'S ORGANIZ ATION 01/02/2024 [facility] EPIC FOR RECORDS PERTAINING TO PATIENTS WHO ARE OR HAVE BEEN ENROLLED IN A CHEMICAL DEPENDENCY/SUBSTANCEABUSE PROGRAM, SOME INFORMATION MAY BE OMITTED. This clinical summary was aggregated from multiple sources. Caution should be exercised in using it in the provision of clinical care. This summary normalizes information from multiple sources, and as a consequence, information in this document may materially change the coding, format and clinical context of patient data. In addition, data may be omitted in some cases. CLINICAL DECISIONS SHOULD BE BASED ON THE PRIMARY CLINICAL RECORDS. [facility]. provides no warranty or guarantee of the accuracy or completeness of information in this document.
[2024-02-07 15:27] LABS: Estimated Average Glucose 134 mg/dL; Glycohemoglobin A1C 6.3 % (4.5-6.2)
[2024-02-07 15:49] LABS: Microalbumin Urine Random <1.3 mg/dL (<=30.0)
== END 2024-02-07 13:21 | disposition home or self-care (01) ==
LOC: LAB 13:27
PROVIDERS: Family Provider Family Medicine; PCP Family Medicine; Visit Provider Family Medicine
DX: E11.65 Type 2 diabetes mellitus with hyperglycemia (principal)
CPT/HCPCS: 36415; 82043; 83036

== ENCOUNTER 2024-07-25 10:19 | Outpatient (OUT) | payer MEDICARE, SELFPAY ==
[2024-07-25 10:42] LABS: Basophils Absolute Auto 0.1 10^3/uL (0.0-0.1); Basophils Percent Auto 0.9 % (0.2-2.0); Eosinophils Absolute Auto 0.2 10^3/uL (0.0-0.7); Eosinophils Percent Auto 3.4 % (0.9-7.0); Hematocrit 42.5 % (42.0-54.0); Hemoglobin 14.2 g/dL (14.0-18.0); Immature Granulocytes Abs Auto 0.02 10^3/uL (0.00-0.03); Immature Granulocytes Pct Auto 0.4 % (0.0-0.5); Lymphocytes Absolute Auto 2.1 10^3/uL (1.2-3.8); Lymphocytes Percent Auto 38.2 % (20.5-60.0); Mean Corpuscular HGB Conc 33.4 g/dL (29.9-35.2); Mean Corpuscular Hemoglobin 31.8 pg (25.9-34.0); Mean Corpuscular Volume 95.1 fL (80.0-94.0); Mean Platelet Volume 10.6 fL (9.5-13.5); Monocytes Absolute Auto 0.5 10^3/uL (0.3-0.8); Monocytes Percent Auto 9.5 % (1.7-12.0); Neutrophils Absolute Auto 2.7 10^3/uL (1.4-6.5); Neutrophils Percent Auto 47.6 % (43.0-75.0); Platelet Count 202 10^3/uL (150-450); Red Blood Count 4.47 10^6/uL (4.70-6.10); Red Cell Distribution Width 12.7 % (11.0-15.0); White Blood Count 5.6 10^3/uL (4.0-11.0)
[2024-07-25 11:40] LABS: Estimated Average Glucose 160 mg/dL; Glycohemoglobin A1C 7.2 % (4.5-6.2)
[2024-07-25 12:04] LABS: Alanine Aminotransferase 25 U/L (16-63); Albumin Globulin Ratio 1.1; Albumin Level 3.7 g/dL (3.4-5.0); Alkaline Phosphatase 74 U/L (46-116); Anion Gap 16.4; Aspartate Amino Transferase 14 U/L (15-37); BUN Creatinine Ratio 10.5; Bilirubin Direct 0.1 mg/dL (0.0-0.2); Bilirubin Total 0.6 mg/dL (0.2-1.0); Calcium 8.8 mg/dL (8.5-10.1); Carbon Dioxide 25.8 mmol/L (21.0-32.0); Chloride 103 mmol/L (98-107); Chol HDL Ratio 4.6; Cholesterol 199 mg/dL (<=200); Estimated GFR (African America >60 (>=60 mL/min/1.73m^2); Estimated GFR (Non-African Ame >60 (>=60 mL/min/1.73m^2); Globulin 3.5 g/dL; Glucose 131 mg/dL (74-106); HDL Cholesterol 43 mg/dL (40-60); Potassium 4.2 mmol/L (3.5-5.1); Sodium 141 mmol/L (136-145); Thyroid Stimulating Hormone 4.453 uIU/mL (0.358-3.740); Total Protein 7.2 g/dL (6.4-8.2); Triglycerides 164 mg/dL (<=150); VLDL CHOLESTEROL 32.8 mg/dL
== END 2024-07-25 10:20 | disposition home or self-care (01) ==
LOC: LAB 10:19
PROVIDERS: Family Provider Family Medicine; PCP Family Medicine; Visit Provider Family Medicine
DX: E78.5 Hyperlipidemia, unspecified (principal); E11.65 Type 2 diabetes mellitus with hyperglycemia; Z79.899 Other long term (current) drug therapy; E66.813 Obesity, class 3; E66.01 Morbid (severe) obesity due to excess calories; Z68.41 Body mass index [BMI] 40.0-44.9, adult
CPT/HCPCS: 36415; 80048; 80061; 80076; 83036; 84443; 85025

== ENCOUNTER 2024-07-31 13:59 | Emergency (ER) | payer MEDICARE, SELFPAY ==
[2024-07-31 14:03] VITALS: BP 166/89; PULSE 80; TEMP 36.7; O2SAT 97; BMI 41.1
--- NOTE | 2024-07-31 14:14 | ED.SKABFB1 ---
HPI - Skin/Abscess/Foreign Bdy General Chief complaint: Skin/Abscess/Foreign Body Stated complaint: LACERATION - HAND Time Seen by Provider: 07/31/24 14:13 Source: patient Mode of arrival: walk-in History of Present Illness HPI narrative: 74 year old male presents to the ED for a laceration to his right hand. He accidentally cut himself with his pocket knife today. Tetanus status is unknown. Denies fever, weakness, N/T. He has full ROM to the right hand and digits. Distal sensation intact. Related Data Allergies Allergy/AdvReac Type Severity Reaction Status Date / Time No Known Drug Allergies Allergy Verified 07/31/24 14:07 Review of Systems ROS Constitutional Denies: fever or chills Cardiovascular Denies: chest pain Respiratory Denies: shortness of breath Integumentary/Breast Reports: other (right hand laceration) Neurological Denies: headache, numbness in extremities, weakness in extremities or dizziness PFSH PFSH Social History Little interest or pleasure in doing things: not at all Feeling down, depressed, or hopeless: not at all Exam Constitutional Vital Signs, click to edit/add: Last Vital Signs Temp 98.1 F 07/31/24 14:03 Pulse 80 07/31/24 14:03 Resp 18 07/31/24 14:03 BP 166/89 H 07/31/24 14:03 Pulse Ox 97 07/31/24 14:03 Common normals: no apparent distress and oriented x3 General appearance: cooperative HENSC Common normals: moist oral mucous membranes Eye Common normals: conjunctivae normal and no scleral icterus Neck & C-Spine Common normals: supple Chest Chest: symmetrical chest wall rise Respiratory Common normals: normal respiratory effort Effort & inspection: able to speak in complete sentences and symmetric chest movement Cardio Peripheral pulses: radial pulses present Extremity Other: 1 cm laceration to right dorsal lateral hand. Minimal bleeding. Wound appears superficial. No swelling or obvious deformity. Full ROM to right hand, wrist, digits. Distal sensation intact. Neuro Common normals: oriented x3 and moves all extremities Sensorium/orientation: awake, alert and obtunded Speech: speech normal Course Vital Signs Vital signs: Vital Signs Temperature 98.1 F 07/31/24 14:03 Pulse Rate 80 07/31/24 14:03 Respiratory Rate 18 07/31/24 14:03 Blood Pressure 166/89 H 07/31/24 14:03 Pulse Oximetry 97 07/31/24 14:03 Temperature 98.1 F 07/31/24 14:03 Pulse Rate 80 07/31/24 14:03 Respiratory Rate 18 07/31/24 14:03 Blood Pressure 166/89 H 07/31/24 14:03 Pulse Oximetry 97 07/31/24 14:03 MDM - Skin/Abscess/Foreign Bdy MDM Narrative Medical decision making narrative: His wound was irrigated and sutures were placed. A dressing was applied. Follow up with pcp for a recheck, further evaluation and treatment. Suture removal in approximately 10 days. Wound care instructions were discussed. Discharge Plan Discharge Chief Complaint: Skin/Abscess/Foreign Body Clinical Impression: Hand laceration Patient Disposition: Home, Self-Care Time of Disposition Decision: 14:31 Condition: Good Mode of Transportation: Private Vehicle Print Language: [place]ian Instructions: Laceration (ED) Additional Instructions: Keep the wound clean and dry. Gentle cleansing with soap and water is okay. Do not soak the wound. Watch for signs of infection: redness, purulent drainage, increased warmth, swelling. The stitches will need to be removed in approximately 10 days. Referrals: Kameron Anaya MD [Primary Care Provider, [facility]] - 1 week Discharge Date/Time: 07/31/24 14:38 Procedures ED Laceration Laceration Laceration 1: Site: hand Side (if applicable): right Size (cm): 1 Description: linear Depth: simple, single layer Anesthetic used: lidocaine 1% Anesthesia technique: local infiltration Pre-repair: irrigated extensively Skin layer closed with: other (Nylon) Size (cm): 5-0 Number of sutures: 3 Technique: simple, interrupted Additional comments: Pt tolerated the procedure well.
[2024-07-31] MEDS: ADACEL DIPH,PERTUSS(ACELL),TET VAC/PF 0.5 ML ADULT SYRINGE IM (14:35)
[2024-07-31] MEDS: LIDOCAINE HCL 1% 100 MG/10 ML MDV INJ (14:35)
== END 2024-07-31 14:38 | disposition home or self-care (01) ==
PROVIDERS: Emergency Provider Emergency Medicine; Family Provider Family Medicine; PCP Family Medicine
DX: S61.411A Laceration without foreign body of right hand, initial encounter (principal); W26.0XXA Contact with knife, initial encounter; Z23 Encounter for immunization
CPT/HCPCS: 12001; 90471; 90715; 99283

== ENCOUNTER 2024-08-18 12:42 | Outpatient (OUT) | payer MEDICARE, SELFPAY ==
--- NOTE | 2024-08-18 12:53 | CA_ITS ---
Patient Name: NANDO DO MR#: [id number] : 1950 Exam Date: 08/18/2024 Ordering Doctor: DR LOLA HILL . ECHOCARDIOGRAM REPORT PROCEDURE: CA ECHO DOPPLER COMPLETE INDICATIONS: Chronic heart failure with reduced EF COMPARISON: None. DESCRIPTION: COMPLETE ECHOCARDIOGRAM Real-time transthoracic echocardiography with 2D, M-mode, spectral and color flow Doppler performed. QUALITY: Technical quality was adequate. LEFT VENTRICLE: Normal chamber size. Moderate concentric left ventricular hypertrophy. Global left ventricular systolic function is moderately decreased. LV EF: Estimated left ventricular ejection fraction is 40%. DIASTOLIC: ATRIAL SEPTUM: LEFT ATRIUM: Mild dilatation. RIGHT ATRIUM: Mild dilatation. RIGHT VENTRICLE: Normal chamber size. Normal right ventricular systolic function. TRICUSPID VALVE: Normal mobility and thickness. No stenosis with trivial regurgitation. No evidence of pulmonary hypertension. RVSP 27 mmHg MITRAL VALVE: Normal mobility and thickness. No evidence of mitral valve stenosis. There is no mitral annular calcification. Trivial mitral regurgitation. AORTIC VALVE: Normal trileaflet appearance. Thickened aortic valve. Normal leaflet mobility. No evidence of aortic valve stenosis. Trivial aortic regurgitation. AORTIC ROOT: Normal diameter and appearance, measuring 3.8 cm. PULMONIC VALVE: Normal thickness and mobility. No stenosis. Trivial regurgitation. PERICARDIUM: No evidence of pericardial effusion. IVC: Collapses with inspirations. Normal size. PLEURA: CONCLUSION: 1. Moderate concentric left ventricular hypertrophy with moderately reduced systolic function. LVEF is estimated at 40%. 2. Normal right ventricular size and systolic function. 3. No significant valvular dysfunction. 4. Normal right-sided pressures. Adult Echocardiography Procedure Report Left Ventricle LVEDD (3.7 - 5.6 cm): 5.60 cm LVESD (2.2 - 4.0 cm): 4.51 cm LVIVS thickness (0.6 - 1.2 cm): 1.56 cm LVPW thickness (0.5 - 1.0 cm): 1.44 cm e': 0.06 m/s E - e': 12.99 LVOT Max Gradient: 3.70 mm[Hg] LVOT Area (cm2): 0.96 m/s Peak Velocity (LVOT): 0.96 m/s LVOT Diameter 2.42 cm Left Ventricular Ejection Fraction: 40 % Left Atrium LA Volume Index (2D A2C): 33.48 ml/m2 Left Atrium Systolic Dimension: 4.88 cm Mitral Valve MV E to A Ratio: 1.39 Mitral Valve A-Wave Peak Velocity: 0.57 m/s Mitral Valve E-Wave Peak Velocity: 0.80 m/s Right Ventricle RV Internal Diastolic Dimension: 4.38 cm Aorta AO Root Diam: 3.80 cm Ascending Ao Diam: 3.56 cm Aortic Valve AoV Area (Peak Herrera): 3.44 cm2, 3.44 cm2 Peak Velocity(Antegrade Flow): 1.28 m/s Peak Gradient(Antegrade Flow): 6.58 mm[Hg] Tricuspid Valve Peak Velocity (Regurgitant Flow): 2.45 m/s Pulmonic Valve Mean Gradient: 2.29 mm[Hg], 2.36 mm[Hg] Mean Velocity: 0.67 m/s, 0.69 m/s Peak Velocity: 1.12 m/s Peak Gradient: 5.05 mm[Hg], 5.05 mm[Hg] Right Atrium Right Atrium Systolic Pressure: 66.13 ml, 66.13 ml Dictated by: Neftali Landrum M.D. on 08/18/2024 at 18:17 Approved by: Neftali Landrum M.D. on 08/18/2024 at 18:35
== END 2024-08-18 12:43 | disposition home or self-care (01) ==
LOC: CARD 12:42
PROVIDERS: Family Provider Family Medicine; PCP Family Medicine; Visit Provider Family Medicine
DX: I50.22 Chronic systolic (congestive) heart failure (principal)
CPT/HCPCS: 93306